=== PATIENT | female | born 1975 | race Caucasian/White ===

== ENCOUNTER 2020-11-15 10:39 | Emergency (ER) | payer OTHER ==
[~2020-11-15] VITALS: Ht 167.6 cm; Wt 84.1 kg
[2020-11-15 10:43] VITALS: BP 167/83
[2020-11-15] MEDS ORDERED: HYDROcodone/acetaminophen 5mg/325mg tablet PO ONE (11:00)
[2020-11-15] MEDS ORDERED: HYDR-3965 PO (12:43)
[2020-11-15] MEDS ORDERED: IBUP-1984 PO (12:43)
[2020-11-15] MEDS ORDERED: tetanus & diphtheria toxoid (Td) vaccine 0.5ml IMVAC ONE (13:00)
[2020-11-15] MEDS ORDERED: TETanus/Pertussis (Acell)/Diphther VAC/PF (Tdap-Adult) 0.5ml syringe IMVAC ONE ×2 (13:05)
== END 2020-11-15 13:11 | disposition home or self-care (01) ==
LOC: ER 10:40
DX: S20.211A Contusion of right front wall of thorax, initial encounter (principal); S50.01XA Contusion of right elbow, initial encounter; I10 Essential (primary) hypertension; Z20.3 Contact with and (suspected) exposure to rabies; Z79.899 Other long term (current) drug therapy; W11.XXXA Fall on and from ladder, initial encounter; Y93.89 Activity, other specified; Y92.89 Other specified places as the place of occurrence of the external cause; Y99.8 Other external cause status; R07.81 Pleurodynia
CPT/HCPCS: 71100; 73080; 90471; 90715; 99284